=== PATIENT | female | born 1995 | race Caucasian/White ===

== ENCOUNTER 2018-03-01 11:29 | Emergency (ER) | payer MEDICAID ==
[~2018-03-01] VITALS: Ht 157.5 cm; Wt 60.0 kg
[2018-03-01] MEDS ORDERED: BIRTH CONTROL (11:57)
[2018-03-01] MEDS ORDERED: BIRTH CONTROL IMPLAN (11:59)
[2018-03-01] MEDS ORDERED: KETOROLAC 30 MG/1 ML ONE (12:20)
[2018-03-01] MEDS ORDERED: KETOROLAC 30 MG/1 ML IM ONE (12:30)
[2018-03-01 12:41] LABS: BASOPHILS # (AUTO) 0.04 x10^3/uL (0-0.1); BASOPHILS % (AUTO) 0 % (0-1); EOSINOPHILS # (AUTO) 0.12 x10^3/uL (0-0.4); EOSINOPHILS % (AUTO) 1 % (1-7); LYMPHOCYTES # (AUTO) 2.16 x10^3/uL (1-3.4); LYMPHOCYTES % (AUTO) 19 % (22-44); MD NO; MEAN CORPUSCULAR HEMOGLOBIN 30.9 pg (27.0-34.8); MEAN CORPUSCULAR HGB CONC 33.9 g/dL (32.4-35.8); MEAN CORPUSCULAR VOLUME 91.2 fL (80-100); MEAN PLATELET VOLUME 8.9 fL (7.4-10.4); MONOCYTES # (AUTO) 0.71 x10^3/uL (0.2-0.8); MONOCYTES % (AUTO) 6 % (2-9); NEUTROPHILS # (AUTO) 8.31 x10^3/uL (1.8-6.8); NEUTROPHILS % (AUTO) 73 % (42-75); PLATELET COUNT 292 x10^3/uL (130-400); RED BLOOD COUNT 4.64 x10^6/uL (3.82-5.3); RED CELL DISTRIBUTION WIDTH 12.5 % (9.6-15.2)
[2018-03-01 12:53] LABS: ALBUMIN 2.9 g/dL (3.4-5.0); ANION GAP 5 mmol/L (5-15); CALCIUM 8.4 mg/dL (8.5-10.1); CHLORIDE 111 mmol/L (98-107); CREATININE 0.67 mg/dL (0.55-1.02)
[2018-03-01 13:58] VITALS: BP 87/45
== END 2018-03-01 14:02 | disposition home or self-care (01) ==
LOC: ED 13:56
DX: M94.0 Chondrocostal junction syndrome [Tietze] (principal)
CPT/HCPCS: 36415; 71046; 80048; 82040; 84703; 85025; 85379; 93005; 96372; 99285; J1885

== ENCOUNTER 2018-05-02 10:23 | Emergency (ER) | payer MEDICAID ==
[~2018-05-02] VITALS: Ht 157.5 cm; Wt 62.6 kg
[~2018-05-02 10:23] MED LIST: BIRTH CONTROL; BIRTH CONTROL IMPLAN
[2018-05-02] MEDS ORDERED: PHENAZOPYRIDINE 200 MG TABLET PO ONE (11:00)
[2018-05-02 11:38] LABS: MICROSCOPIC AUTO
[2018-05-02 11:41] LABS: CULTURE INDICATED? YES
[2018-05-02] MEDS ORDERED: PHENAZOPYRIDINE 200 MG TABLET ONE (12:09)
[2018-05-02 12:13] VITALS: BP 91/54
== END 2018-05-02 13:28 | disposition home or self-care (01) ==
LOC: ED 11:05
DX: R30.0 Dysuria (principal); F17.210 Nicotine dependence, cigarettes, uncomplicated
CPT/HCPCS: 81001; 87086; 99284

== ENCOUNTER 2019-05-19 21:59 | Emergency (ER) | payer SELFPAY ==
[~2019-05-19] VITALS: Ht 157.5 cm; Wt 68.9 kg
--- NOTE | 2019-05-20 01:11 | NUR ---
TASK RN: SHANNON COLLECTED AND SENT TO LAB. PT SITTING UP IN [place] LICEA NOTED. PT DENIES NEED FOR PAIN/NAUSEA MEDICATIONS
[2019-05-20 01:17] LABS: MICROSCOPIC INDICATED
[2019-05-20 01:18] LABS: HCG UR SG 1.026 (1.003-1.030)
[2019-05-20] MEDS ORDERED: FLUCONAZOLE 100 MG TABLET ONE (01:46)
[2019-05-20] MEDS ORDERED: FLUCONAZOLE 100 MG TABLET PO ONE (02:00)
[2019-05-20 02:09] VITALS: BP 118/68
== END 2019-05-20 02:11 | disposition home or self-care (01) ==
LOC: ED 05-20 01:50
DX: R30.0 Dysuria (principal)
CPT/HCPCS: 81001; 81025; 99283